=== PATIENT | female | born 1935 | race Hispanic/Latino ===

== ENCOUNTER → 2018-02-10 | Outpatient (CLI) | payer MEDICARE ==
[~2018-02-10] MED LIST: ALEN70TA47 PO; AMAN100C12 PO; ANAS1TAB7 PO; ASPI-1181 PO; CALCIUM PO; CARB-38 PO; FURO40TA5 PO; ISOS30TA6 PO; LEVO500T2 PO; LOVA20TA3 PO; POTA8TAB7 PO; VALS80TA30 PO; VITD PO
== END | disposition home or self-care (01) ==
LOC: SHCH 10:40
PROVIDERS: ATTEND Internal Medicine Cardiovascular Disease
DX: I25.10 Atherosclerotic heart disease of native coronary artery without angina pectoris (principal); I10 Essential (primary) hypertension
CPT/HCPCS: 93306

== ENCOUNTER → 2018-02-14 | Outpatient (CLI) | payer MEDICARE | END | disposition home or self-care (01) | LOC: SHCH 15:57 | PROVIDERS: ATTEND Internal Medicine Cardiovascular Disease | DX: I87.2 Venous insufficiency (chronic) (peripheral) (principal); I73.9 Peripheral vascular disease, unspecified; I10 Essential (primary) hypertension | CPT/HCPCS: 93925; 93970 ==

== ENCOUNTER → 2018-02-15 | Outpatient (CLI) | payer MEDICARE | LOC: RAH 12:53 | PROVIDERS: ATTEND Family Medicine | DX: R92.2 Inconclusive mammogram (principal); N64.4 Mastodynia; Z85.3 Personal history of malignant neoplasm of breast; Z90.11 Acquired absence of right breast and nipple | CPT/HCPCS: 77065 ==

== ENCOUNTER → 2018-08-04 | Outpatient (CLI) | payer MEDICARE ==
[~2018-08-04] MED LIST changes: -ALEN70TA47 PO; -AMAN100C12 PO; -ASPI-1181 PO; -CALCIUM PO; -FURO40TA5 PO; -ISOS30TA6 PO; -LEVO500T2 PO; -LOVA20TA3 PO; -VITD PO
== END | disposition home or self-care (01) ==
LOC: SHCH 14:28
PROVIDERS: ATTEND Internal Medicine Cardiovascular Disease
DX: I08.1 Rheumatic disorders of both mitral and tricuspid valves (principal); I48.0 Paroxysmal atrial fibrillation
CPT/HCPCS: 93306